=== PATIENT | female | born 2005 | race Two or more races ===

== ENCOUNTER 2024-07-02 23:10 | Emergency (ER) | payer OTHER ==
[~2024-07-02] VITALS: Ht 160 cm; Wt 54.4 kg
[2024-07-02 23:36] VITALS: BP 109/72; O2SAT 99
[2024-07-03] MEDS ORDERED: TETANUS & DIPHTHERIA TOX,ADULT 0.5 ML VIAL IM STA (02:23)
== END 2024-07-03 02:34 | disposition home or self-care (01) ==
LOC: EMR PED → ER 23:12 → EMR PED 23:12
DX: S80.812A Abrasion, left lower leg, initial encounter (principal); X58.XXXA Exposure to other specified factors, initial encounter; Y93.89 Activity, other specified; Y92.89 Other specified places as the place of occurrence of the external cause; Y99.8 Other external cause status; R53.81 Other malaise
CPT/HCPCS: 90471; 90714; J1670